=== PATIENT | female | born 1990 | race Two or more races ===

== ENCOUNTER 2021-04-07 17:44 | Emergency (ER) | payer MEDICAID, OTHER ==
[~2021-04-07] VITALS: Ht 152.4 cm; Wt 79.4 kg
[2021-04-07 20:03] VITALS: BP 129/82
== END 2021-04-07 20:26 | disposition home or self-care (01) ==
LOC: ER 17:44
DX: O26.891 Other specified pregnancy related conditions, first trimester (principal); S16.1XXA Strain of muscle, fascia and tendon at neck level, initial encounter; S39.012A Strain of muscle, fascia and tendon of lower back, initial encounter; S13.4XXA Sprain of ligaments of cervical spine, initial encounter; Z3A.11 11 weeks gestation of pregnancy; V43.62XA Car passenger injured in collision with other type car in traffic accident, initial encounter; Y93.89 Activity, other specified; Y92.488 Other paved roadways as the place of occurrence of the external cause; Y99.8 Other external cause status
CPT/HCPCS: 36415; 76801; 84702